=== PATIENT | male | born 1955 | race Caucasian/White ===

== ENCOUNTER 2017-05-30 11:31 | Day surgery (SDC) | END 2017-05-30 17:10 | disposition home or self-care (01) | DX: M23.204 Derangement of unspecified medial meniscus due to old tear or injury, left knee (principal); M94.262 Chondromalacia, left knee | CPT/HCPCS: 29881; J0171; J0690; J1040; J1170; J1885; J2250; J2405; J2765; J3010; Z7512; Z7610 ==